=== PATIENT | female | born 1945 | race Caucasian/White ===

== ENCOUNTER 2016-10-22 06:01 | Inpatient (IN) | payer MEDICARE, OTHER ==
[2016-10-19 08:50] LABS: INTERNATIONAL NORMAL RATI 1.1 UNITS (-); PARTIAL THROMBO TIME 28.1 SEC (22.5-37.2)
[2016-10-19 08:51] LABS: PROTIME (NOT ORD) 13.8 SEC (12.0-14.5)
--- NOTE | ~2016-10-22 | PREOPHP ---
PreOp History and Physical [address] [id number] [place]. [address] NAME: SERJIO NOVAK : 49 STATUS : ADM IN PAT#: [id number] AGE: 71 ADM/REG DATE : 10/22/16 MR#: [id number] REPORT SERV DATE: 10/22/16 DICTATED BY: MESERET SANCHEZ III DATE: 10/13/16 REPORT STATUS : Draft TRANSCRIBED BY: MODNeil DATE: 10/13/16 HISTORY OF PRESENT ILLNESS: This 71-year-old female comes to the operating room for laparoscopic right colectomy, possible laparotomy, for biopsy proven cancer of the proximal colon. The patient recently had a routine colonoscopy. This is due to a family history of cancer. She was found to have a small cancer in the proximal right colon, located in the fold of the colon. This is not a mass, but rather an area of thickening within a fold. The patient comes to the operating room now for laparoscopic right colectomy, possible laparotomy. The patient has had multiple abdominal operations in the past, and the fact that this will increase her risk for enterotomy and surgical complications and possible need for laparotomy has been explained. PAST MEDICAL HISTORY: History of pulmonary embolus after hernia surgery. 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 FAMILY HISTORY: Positive for colon cancer and Alzheimer disease and stroke. SOCIAL HISTORY: No history of tobacco or alcohol use. 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 ALLERGIES: NONE. MEDICATIONS: None regularly. REVIEW OF SYSTEMS: The patient's 14-point review of systems otherwise unremarkable. PHYSICAL EXAMINATION: GENERAL: This is a female, in no acute distress. She is alert and oriented x3. VITAL SIGNS: Blood pressure 137/76, pulse 79, temperature 97. HEENT: Unremarkable. Cranial nerves 2 through 12 are normal. LUNGS: Clear. CARDIAC: Normal. ABDOMEN: Soft, nontender. The patient has what appears to be an incisional hernia with weakness in the midline over a previous lower abdominal incision, below the navel, which is reducible. EXTREMITIES: Normal. LABORATORY DATA: CT scan of the abdomen and pelvis shows a subtle enhancing lesion in segment 5 of the liver, thought most likely to be benign but with MRI pending to rule out malignancy. There is noted to be diastasis of the left anterior abdominal wall with some thickening in the musculature with a loop of colon in this with no evidence for compromise. The patient's CEA is normal. Colonoscopy shows a 1.5 cm to 2 cm flat inflamed polypoid fold in the proximal ascending colon, which was friable. Biopsy confirmed this to be PreOp History and Physical [address] [address] NAME: SERJIO NOVAK : 49 STATUS : ADM IN [facility]#: [id number] AGE: 71 ADM/REG DATE : 10/22/16 MR#: [id number] REPORT SERV DATE: 10/22/16 DICTATED BY: MESERET SANCHEZ III DATE: 10/13/16 REPORT STATUS : Draft TRANSCRIBED BY: LESLIE DATE: 10/13/16 adenocarcinoma. ASSESSMENT: 71-year-old female with: 1. Biopsy proven cancer of the proximal right colon. 2. History of multiple abdominal operations as above. PLAN: The patient comes to the operating room for laparoscopic right colectomy, possible laparotomy. This procedure, the risks, benefits, and alternatives, including not limited to the risk for bleeding, infection, enterotomy, injury to any abdominal structure, postop small bowel obstruction, ileus, incisional hernia, dehiscence, anastomotic leak, requiring reoperation with ileostomy, ureteral injury, the very definite possible need for laparotomy, and unforeseen complications including deep venous thrombosis, pulmonary embolus, myocardial infarction, stroke, pneumonia, and , have been fully and completely explained to patient at length prior to surgery. The fact that this is a major operation with risk for major morbidity and mortality has been explained as well as expected length of recovery with open laparoscopic procedures. Due to her previous abdominal operations, the increased risk of possible need for laparotomy and increased risk for enterotomy or surgical complications has been explained. The patient's questions were answered. She understands the risks and agrees to surgery as planned. NINA/LESLIE Meseret Sanchez III, M.D. / [id number] CC: Al Balbuena M.D. Maxime Smith M.D.
--- NOTE | ~2016-10-22 | DS ---
Discharge Summary [facility] [address] [place]. [address] NAME: SERJIO NOVAK : 49 STATUS : DIS IN PAT#: [id number] AGE: 71 ADM/REG DATE : 10/22/16 MR#: [id number] REPORT SERV DATE: 11/05/16 DICTATED BY: MESERET SANCHEZ III DATE: 11/04/16 REPORT STATUS : Draft TRANSCRIBED BY: MODNeil DATE: 11/04/16 Data Collection from hospitalization DISCHARGE DIAGNOSIS: Biopsy-proven adenocarcinoma of the right colon. CONSULTATIONS: None. PROCEDURES PERFORMED: Laparoscopic right colectomy with resection of terminal ileum and ileocolonic anastomosis on 10/22/2016. PATHOLOGY: Right colon, laparoscopic right colectomy - residual adenocarcinoma focally arising and surrounding tubulovillous adenoma, submitted as "additional transverse colon." Resected portion - negative for malignancy. Colon submitted as "both distal margin." Resected portion - negative for malignancy. MEDICATIONS: Percocet 7.5/325 one tablet three times a day as needed. CONDITION AT DISCHARGE: Stable. DISPOSITION: The patient was discharged home on a soft diet with activities as instructed. She would follow up with me on 11/09/2016. HOSPITAL COURSE: This is a 71-year-old female who has biopsy-proven cancer of the right colon. This cancer was located in the proximal right colon. This was a subtle fold in the colon seen on screening colonoscopy. The patient's workup showed no evidence for metastatic disease. It was felt that laparoscopic right colectomy and possible laparotomy was indicated. She was admitted to the hospital at this time for further evaluation and treatment. Upon admission, she was taken to the operating room where she underwent the above-mentioned procedure. She tolerated this well, and there were no complications. The following day, she had no complaints. She was alert and comfortable. She was afebrile. Her Reese catheter was removed. Clear liquids were started. She was progressing well. On 10/24/2016, she was passing some gas per rectum, but still complained of some abdominal distention. Reglan was given. Dulcolax was provided. Over the next couple of days, she continued to progress. Discharge planning was performed. She said she was feeling better. The TACO MAKER was discontinued. Her diet was advanced. On 10/26/2016, she felt well and wanted to go home. She was eating well and passing stool. Discharge instructions were given. Due to her improved and stable condition, she was discharged home with the above-stated instructions. Information collected by: Luiza Mix I submit the above information as my discharge summary. ROXANNE/LESLIE Discharge Summary [address] [address] NAME: SERJIO NOVAK : 49 STATUS : DIS IN PAT#: [id number] AGE: 71 ADM/REG DATE : 10/22/16 MR#: [id number] REPORT SERV DATE: 11/05/16 DICTATED BY: MESERET SANCHEZ III DATE: 11/04/16 REPORT STATUS : Draft TRANSCRIBED BY: LESLIE DATE: 11/04/16 Meseret Sanchez III, M.D. / [id number] CC: Danielle Gutierrez III, M.D.
--- NOTE | ~2016-10-22 | OP ---
Record Of Operation [facility] [address] [place]. [address] NAME: SERJIO NOVAK : 49 STATUS : ADM IN [facility]#: [id number] AGE: 71 ADM/REG DATE : 10/22/16 MR#: [id number] REPORT SERV DATE: 10/22/16 DICTATED BY: MESERET SANCHEZ III DATE: 10/22/16 REPORT STATUS : Draft TRANSCRIBED BY: MODL DATE: 10/22/16 DATE OF PROCEDURE: 10/22/2016 PREOPERATIVE DIAGNOSIS: Biopsy-proven adenocarcinoma of the right colon. POSTOPERATIVE DIAGNOSIS: Biopsy-proven adenocarcinoma of the right colon. PROCEDURE: Laparoscopic right colectomy with resection of terminal ilium and ileocolonic anastomosis. SURGEON: Meseret Sanchez M.D. ANESTHESIA: General with intubation. COMPLICATIONS: None. ESTIMATED BLOOD LOSS: 25 mL. SPECIMENS: Terminal ileum, right colon, with distal transverse colon margins x2. LAP AND SPONGE COUNT: Correct x3. DRAINS: Dany in subcutaneous tissue. COMPLICATIONS: None. BRIEF HISTORY: This 71-year-old female presented with a biopsy-proven cancer of the right colon. This cancer was located in the proximal right colon. This was a subtle fold in the colon seen on screening colonoscopy. The patient's workup showed no evidence for metastatic disease, and it was felt that laparoscopic right colectomy, possible laparotomy, was indicated. This procedure, the risks, benefits, and alternatives, including not limited to the risk for bleeding, infection, enterotomy, injury to any abdominal structure, postop small bowel obstruction, ileus, incisional hernia, dehiscence, anastomotic leak requiring reoperation, ileostomy, ureteral injury, possible need for laparotomy, and unforeseen complications including deep venous thrombosis, pulmonary embolus, myocardial infarction, stroke, pneumonia and , were fully and completely explained to the patient and her family prior to surgery. The fact that this was a major operation with risk for major morbidity and mortality was explained as well as expected length of recovery with open laparoscopic procedures. The fact that she has an increased risk for enterotomy and surgical complications, a possible need for laparotomy due to her multiple previous abdominal operations, was explained to the patient and questions which were answered. She fully understood the risks and agreed to the surgery as planned. FINDINGS: The patient had a very small malignancy identified in the proximal right colon. This was a subtle fold. The biopsy site where this had been biopsied was clearly seen. The patient had dense abdominal adhesions, but we were able to complete the procedure Record Of Operation [address] [address] NAME: SERJIO NOVAK : 49 STATUS : ADM IN PAT#: [id number] AGE: 71 ADM/REG DATE : 10/22/16 MR#: [id number] REPORT SERV DATE: 10/22/16 DICTATED BY: MESERET SANCHEZ III DATE: 10/22/16 REPORT STATUS : Draft TRANSCRIBED BY: LESLIE DATE: 10/22/16 laparoscopically. PROCEDURE IN DETAIL: After being properly identified and after discussing the risks of surgery with the patient and family again in the preoperative area, and after appropriate bowel preparation at home, the patient was taken to the operating room and placed in the supine position on the operating room table. General anesthesia was administered and she was intubated without difficulty. A Reese catheter was inserted. The abdomen was prepped and draped sterilely in the usual fashion. After an appropriate "time-out" per JCAHO standards, a small vertical incision was made in the midline, just lateral to the navel. The incision was continued through the subcutaneous tissue. Hemostasis was controlled with cautery. The incision was continued through the fascia. Under direct vision, the abdominal cavity was entered. A #10 balloon-tipped Origin trocar was placed under direct vision into the abdominal cavity. The balloon was inflated. The abdominal cavity was insufflated to about 13 mmHg of carbon dioxide. Correct position of air in the peritoneal cavity was confirmed by palpation. The laparoscope was placed through this. The abdomen was inspected. There were dense adhesions primarily in the upper abdomen beneath the previous subcostal incision. There was no evidence for carcinomatosis or peritoneal implants. A 5 mm trocar was then placed in the midline, just above the pubis, under direct vision with the laparoscope. Another 5 mm trocar was placed in the left upper quadrant, also under direct vision with the laparoscope. The patient was rotated slightly to her left. The appropriate instruments were placed through the trocars. The right colon was grasped and retracted medially. Using sharp dissection, peritoneal reflection of the right colon was divided along the line of Toldt. The colon was mobilized medially. This was done from the cecum to the hepatic flexure. There were adhesions between the proximal transverse colon and the underside of the abdominal wall. These adhesions were carefully divided under direct vision. After full and complete mobilization of the right colon, a small right subcostal incision was made over the hepatic flexure. The incision was continued through the subcutaneous tissue. Hemostasis was controlled with cautery. The incision was continued through the fascia. The abdominal cavity was entered. The right colon was mobilized into the wound. We mobilized the entire right colon, as well as the proximal transverse colon to the mid transverse colon. An appropriate window was made in the mesentery to the distal ileum. A LOBO stapler was used to divide the ileum at this point. We then made a window in the mesentery to the mid transverse colon beyond the hepatic flexure. A LOBO stapler was used about the colon at this point. The mesentery to this portion of terminal ileum, right colon was then divided along the base of the mesentery using the Harmonic Scalpel so as to perform a correct oncologic dissection of the lymphovascular supply to the right colon. The colon was thus removed and sent to Pathology and oriented with sutures. It was interpreted as containing the tumor, which was very subtle within a fold. The biopsy site could clearly be seen. It was felt that the tumor margins were clear but close. For this reason, a revised distal 2 cm of transverse colon was again resected using a LOBO stapler. The true margin was marked with a suture, and this was sent for permanent pathology. After making the anastomosis, an additional final margin of transverse colon was also sent separately. We then performed a [id number] anastomosis between the divided terminal ileum and the mid Record Of Operation [address] [address] NAME: SERJIO NOVAK : 49 STATUS : ADM IN PAT#: [id number] AGE: 71 ADM/REG DATE : 10/22/16 MR#: [id number] REPORT SERV DATE: 10/22/16 DICTATED BY: MESERET SANCHEZ III DATE: 10/22/16 REPORT STATUS : Draft TRANSCRIBED BY: MODL DATE: 10/22/16 right transverse colon. This was performed by aligning the antimesenteric border of the small bowel with antimesenteric border of the transverse colon with interrupted 3-0 silk sutures. A small opening was then made in the antimesenteric border of the small bowel and corresponding antimesenteric border of the transverse colon. A LOBO stapler was placed through this and fired. The defect created by the stapler was closed with a TA-60 stapler. This staple line was oversewn with interrupted 3-0 silk sutures. The "crotch" anastomosis was secured with 3-0 silk sutures. Upon completion of this, the anastomosis was widely patent to palpation. It was not twisted or kinked in any way. It was not under any tension. The area was irrigated copiously with saline. Hemostasis was assured. The trocars were removed. The fascia of the subcostal incision was closed in two layers with a running looped #1 PDS suture. The fascia of the periumbilical incision was closed with a running 3-0 Vicryl suture. The subcutaneous tissue of the subcostal incision was closed with a running 3-0 chromic suture over the Dany drain, which was brought through the lateral aspect of the incision. The skin incisions were closed with running subcuticular 4- 0 Monocryl stitches. They were injected with 0.5% Marcaine. Dressings were applied. Anesthesia was reversed. The patient was taken to the recovery room in stable condition. She tolerated the procedure well. Her family was informed with results of surgery. The patient will remain in the hospital for postoperative care. RHJ/MODL Meseret Sanchez III, M.D. / [id number] CC: Danielle Gutierrez III, M.D.
[~2016-10-22 06:01] MED LIST: *DENIES
[2016-10-23 06:13] LABS: BASOPHILS 0.1 %; BASOPHILS ABSOLUTE 0.01 10/3/uL (0.0-0.16); EOSINOPHILS 0 %; IMMATURE GRANULOCYTES 0.3 %; IMMATURE GRANULOCYTES ABSOLUTE 0.04 10/3/uL (0.0-0.11); LYMPHOCYTES 11.5 %; LYMPHOCYTES ABSOLUTE 1.62 10/3/uL (0.67-4.30); MEAN CORPUS HGB CONC 33.3 g/dL (32.0-36.0); MEAN CORPUSCULAR HEMOGLOB 31.9 pg (26.0-34.0); MEAN CORPUSCULAR VOLUME 95.7 fL (80-100); MEAN PLATELET VOLUME 10.4 fL (9.2-13.0); MONOCYTES 8.2 %; MONOCYTES ABSOLUTE 1.16 10/3/uL (0.21-1.20); NEUTROPHILS 79.9 %; NEUTROPHILS ABSOLUTE 11.27 10/3/uL (2.02-8.40); PLATELET COUNT 231 10/3/uL (150-400)
[2016-10-23 06:14] LABS: MANUAL DIFF NO %; RED CELL COUNT 3.45 10/6/uL (4.0-5.6); WHITE BLOOD CELLS 14.1 10/3/uL (4.5-10.5)
[2016-10-23 06:19] LABS: CALCIUM, SERUM 8.7 MG/DL (8.5-10.4); CHLORIDE, SERUM 108 MMOL/L (96-112); CREATININE 0.89 MG/DL (0.55-1.02); GFR AFRICAN AMERICAN 77 ML/MIN (>=60); GFR NON AFRICAN AMERICAN 66 ML/MIN (>=60); POTASSIUM, SERUM 5.1 MMOL/L (3.5-5.3); SODIUM, SERUM 139 MMOL/L (135-148)
[2016-10-23 06:20] LABS: BUN (BLOOD UREA NITROGEN) 10 MG/DL (6-23); CO2 (CARBON DIOXIDE) 23 MMOL/L (24-34); GLUCOSE, SERUM 134 MG/DL (60-99)
[2016-10-24 05:48] LABS: BASOPHILS 0.3 %; BASOPHILS ABSOLUTE 0.03 10/3/uL (0.0-0.16); HEMATOCRIT 32.2 % (36.0-48.0); HEMOGLOBIN 10.7 g/dL (12.0-16.0); IMMATURE GRANULOCYTES 0.2 %; IMMATURE GRANULOCYTES ABSOLUTE 0.02 10/3/uL (0.0-0.11); LYMPHOCYTES 30.5 %; LYMPHOCYTES ABSOLUTE 3.12 10/3/uL (0.67-4.30); MEAN CORPUS HGB CONC 33.2 g/dL (32.0-36.0); MEAN CORPUSCULAR HEMOGLOB 31.8 pg (26.0-34.0); MEAN CORPUSCULAR VOLUME 95.5 fL (80-100); MEAN PLATELET VOLUME 10.2 fL (9.2-13.0); MONOCYTES 8.8 %; NEUTROPHILS 58.2 %; NEUTROPHILS ABSOLUTE 5.96 10/3/uL (2.02-8.40); PLATELET COUNT 188 10/3/uL (150-400); RBC DISTRIBUTION WIDTH 12.9 % (12.0-16.0); RED CELL COUNT 3.37 10/6/uL (4.0-5.6); WHITE BLOOD CELLS 10.2 10/3/uL (4.5-10.5)
[2016-10-24 05:49] LABS: MANUAL DIFF NO %
[2016-10-24 06:04] LABS: BUN (BLOOD UREA NITROGEN) 11 MG/DL (6-23); CALCIUM, SERUM 8.4 MG/DL (8.5-10.4); CHLORIDE, SERUM 105 MMOL/L (96-112); CO2 (CARBON DIOXIDE) 23 MMOL/L (24-34); CREATININE 0.74 MG/DL (0.55-1.02); GFR AFRICAN AMERICAN 96 ML/MIN (>=60); GFR NON AFRICAN AMERICAN 83 ML/MIN (>=60); GLUCOSE, SERUM 83 MG/DL (60-99); POTASSIUM, SERUM 4.2 MMOL/L (3.5-5.3); SODIUM, SERUM 134 MMOL/L (135-148)
[2016-10-25 06:56] LABS: BASOPHILS 0.2 %; BASOPHILS ABSOLUTE 0.02 10/3/uL (0.0-0.16); EOSINOPHILS 3.9 %; EOSINOPHILS ABSOLUTE 0.35 10/3/uL (0.0-0.53); HEMOGLOBIN 12.3 g/dL (12.0-16.0); IMMATURE GRANULOCYTES 0.2 %; IMMATURE GRANULOCYTES ABSOLUTE 0.02 10/3/uL (0.0-0.11); LYMPHOCYTES 22.5 %; LYMPHOCYTES ABSOLUTE 2.02 10/3/uL (0.67-4.30); MEAN CORPUS HGB CONC 33.5 g/dL (32.0-36.0); MEAN CORPUSCULAR HEMOGLOB 31.4 pg (26.0-34.0); MEAN CORPUSCULAR VOLUME 93.6 fL (80-100); MEAN PLATELET VOLUME 10.2 fL (9.2-13.0); MONOCYTES ABSOLUTE 0.72 10/3/uL (0.21-1.20); NEUTROPHILS 65.2 %; NEUTROPHILS ABSOLUTE 5.84 10/3/uL (2.02-8.40); PLATELET COUNT 218 10/3/uL (150-400); RBC DISTRIBUTION WIDTH 12.5 % (12.0-16.0); RED CELL COUNT 3.92 10/6/uL (4.0-5.6)
[2016-10-25 06:57] LABS: HEMATOCRIT 36.7 % (36.0-48.0); MANUAL DIFF NO %
[2016-10-25 07:05] LABS: BUN (BLOOD UREA NITROGEN) 7 MG/DL (6-23); CALCIUM, SERUM 8.7 MG/DL (8.5-10.4); CHLORIDE, SERUM 106 MMOL/L (96-112); CO2 (CARBON DIOXIDE) 29 MMOL/L (24-34); CREATININE 0.66 MG/DL (0.55-1.02); GFR AFRICAN AMERICAN 104 ML/MIN (>=60); GFR NON AFRICAN AMERICAN 90 ML/MIN (>=60); GLUCOSE, SERUM 85 MG/DL (60-99); POTASSIUM, SERUM 3.8 MMOL/L (3.5-5.3); SODIUM, SERUM 140 MMOL/L (135-148)
[2016-10-26] MEDS ORDERED: PERCOCET 7.5/321 TAB PO (09:37)
== END 2016-10-26 11:00 | disposition home or self-care (01) | DRG 375 ==
LOC: SDC/OF 06:01 → PACU 10:01 → 5SO 11:55
PROVIDERS: Surgery
PROC: 3E0T3CZ (ICD-10-PCS; principal; 2016-10-22 07:45)
DX: C18.2 Malignant neoplasm of ascending colon (principal); K56.7 Ileus, unspecified; Z86.711 Personal history of pulmonary embolism; Z80.0 Family history of malignant neoplasm of digestive organs; Z98.890 Other specified postprocedural states; Z90.710 Acquired absence of both cervix and uterus; Z90.49 Acquired absence of other specified parts of digestive tract; Z82.3 Family history of stroke
CPT/HCPCS: 36415; 74183; 80048; 85025; 85610; 85730; 86850; 86900; 86901; 88307; 88309; 88341; 88342; 93005; A9270-GY; A9581; C9113; J0690; J1885; J2250; J2270; J2405; J2710; J2765; J2795; J3010